=== PATIENT | male | born 2000 | race Caucasian/White ===

== ENCOUNTER 2023-12-15 10:00 | Outpatient (CLI) | payer OTHER ==
--- NOTE | 2023-12-15 11:06 | Sleep Patient Instructions ---
Sleep Center Visit Summary - Patient Visit Information Reason for Visit: Initial consult for evaluation of sleep disordered breathing and other sleep issues. - Patient Instructions Instructions Attached: Sleep Study, Sleep Study Home Monitor Additional Instructions: You will be completing a sleep study, either an in-lab polysomnography (PSG) or home sleep study (HST). You will follow-up in the sleep care office after the sleep study is completed to hear the results and talk about therapy, if needed. You will be called by our office staff to schedule this appointment, but you may contact us with any questions. - Clinic Information Contact: [facility] [address] [place] [id number] [email or web address] T: [phone]
[2023-12-15 11:08] VITALS: BP 123/76; O2SAT 100
--- NOTE | 2023-12-15 11:08 | SLEEP CARE CONSULTATION ---
Information from patient questionnaire entered by Manuela Baca. I have reviewed and concur with the information entered by Manuela Baca. This document represents the service I personally performed and the decisions made by me, Gabby Jerome ARNP. History of Present Illness Service Date and Time: 12/15/2023 1000 Reason for Visit: New patient Chief Complaint: reports: Unrefreshed sleep, Excessive daytime sleepiness, Fatigue Date of Onset: A YR Usual bedtime: 2200 Time it takes to fall asleep: 10-15 MINS Snores at night: Yes Observed to quit breathing while asleep: No Sleeps alone due to snoring: No Number of times waking at night: USUALLY NEVER Reasons for waking at night: reports: Gasping for air (handful of times, last time 4 months ago). denies: Choking Toss, Turn, or Twitch while sleeping: Yes Recalls having dreams: Yes Usually gets out of bed at: 0500; weekends 09-1000 Feels refreshed in the morning: No Morning headache: Yes (almost daily) Sleepy or fatigued during the day: Yes Ever fallen asleep while driving: No Takes day naps: No Dreams during day naps: Yes Prior sleep studies: No Additional HPI information: I had the pleasure of seeing JAMEY PEREZ today regarding the possibility of him having a sleep disorder. His current complaints are fatigue, sleepiness and unrefreshed sleep. He says he has fatigue during the day and waking up not feeling rested at all. He is waking up with headaches almost every day that last about 1 hour or more. He also has a dry mouth in the mornings. The patient tells me that he normally goes to bed around 10 pm, and it takes him approximately 10-15 minutes to fall asleep. He has been told that he snores loudly and irregularly at night. He has not been observed to stop breathing in his sleep. His bed partner can still sleep in the same bed. He can recall waking up on the average of 0 times during the night. He has not awakened for his own snoring, choking, and having to gasp for air. There is a lot of tossing and turning in his sleep. Generally he can recall having dreams. He usually wakes up at 0500 and does not feel refreshed. He usually does have a morning headache. During the day he complains of feeling sleepy and fatigued. He has never fallen asleep while driving nor has any accident due to sleepiness. He usually does not take naps during the day. There is no somniloquy (sleep talking) or somnambulism (sleep walking). He reports having impaired concentration during the day. - Parasomnia Symptoms Ever been unable to move upon waking from sleep: Yes (only when takes naps, none in last year) Walks in sleep: No Talks in sleep: No Ever acted out dreams in sleep: No Ever felt weak in the knees when startled or emotional: No Bothered by creepy, crawly, restless sensations in legs: No Problems with memory or concentration: Yes ( mostly concentration) Subjective Initial [place] Sleepiness Scale score: 10 (12/03/23) Past Medical History Past Medical History: reports: Other (no significant medical conditions) Social History The patient's occupation is a ACTIVE [employer]. Patient is Single and lives in . Have you smoked in the past 12 months: No Alcohol use: No Caffeine use: Yes Caffeine amount and frequency: 1-2 QAM Family History Family history of sleep disordered breathing: No Allergies and Home Medications Known drug allergies: No Drug allergies reviewed: Yes Home medication list reviewed: Yes (none) Allergy and home medication list: Allergies No Known Drug Allergies Allergy (Verified 12/15/23 10:39) Home Medications No Known Home Medications 12/15/23 [History] Review of Systems Cardiovascular: denies: high blood pressure Gastrointestinal: denies: heartburn Neurological: denies: headaches Psychiatric: denies: anxiety, depression Ear/Nose/Throat: reports: dry mouth/throat, wisdom teeth removed. denies: tonsillectomy Endocrine: reports: sluggishness, excessive thirst Physical Exam Vital signs obtained and entered by: MANUELA Kenny MA Blood Pressure: 123/76 (LEFT ARM) Cuff size: regular Heart Rate: 76 O2 Saturation: 100 Height: 6 ft 2 in (PER PT) Weight: 175 lb 8 oz (PER PT) Body Mass Index: 22.5 BMI Classification: Normal Neck circumference: 14.75 Nostrils: patent to airflow Mouth and throat: narrow oropharynx Soft palate: long Hard palate: normal Uvula: normal Uvula visualization: 25% Mallampati Class III Tongue: normal in size Tonsils: small Neck: normal w/o lymphadenopathy or thyromegaly Heart: regular rate and rhythm Lungs: clear bilaterally Impression and Plan 1. Suspected Obstructive Sleep Apnea-Hypopnea Syndrome, as suggested by a history of irregular snoring, morning headache, unrefreshed sleep, cognitive impairment, and excessive daytime sleepiness. Narrow oropharynx and obesity are common predisposing factors for obstructive sleep apnea-hypopnea syndrome. I recommend proceeding to polysomnography to confirm the diagnosis and to assess severity. If the patient has significant sleep disordered breathing, a manual CPAP titration study will also be performed to find the optimal treatment pressure. I informed the patient of what the sleep studies involve and after some discussion, obtained agreement to proceed. The pathophysiology of obstructive sleep apnea-hypopnea syndrome was discussed with the patient and he alth risks of cardiovascular and cerebrovascular disease if not treated. Risks of drowsy driving discussed in detail and patient advised to avoid long distance driving and to green chain puller at the first sign of drowsiness. Patient agreed to plan. * Schedule polysomnography * Avoid long distance driving or driving when feeling sleepy. * Avoid alcohol, sedative and muscle relaxant around bedtime. * Review instructions provided by trained office staff on how to prepare for the sleep study. * Return for follow-up after sleep study completed. Plan: PSG/HST and follow up Time Spent with Patient (minutes): 27
== END 2023-12-15 10:01 | disposition home or self-care (01) ==
LOC: SC 10:00
PROVIDERS: ATTEND Nurse Practitioner Family
DX: R06.83 Snoring (principal); R51.9 Headache, unspecified; G47.8 Other sleep disorders; G47.10 Hypersomnia, unspecified; R41.89 Other symptoms and signs involving cognitive functions and awareness
CPT/HCPCS: 99202; 99212

== ENCOUNTER 2023-12-25 08:44 | Outpatient (CLI) | payer OTHER | END 2023-12-25 08:45 | disposition home or self-care (01) | LOC: SC 08:44 | PROVIDERS: ATTEND Nurse Practitioner Family | DX: R06.83 Snoring (principal); G47.10 Hypersomnia, unspecified; R53.83 Other fatigue; R51.9 Headache, unspecified; G47.8 Other sleep disorders | CPT/HCPCS: 95806 ==

== ENCOUNTER 2024-01-13 09:44 | Outpatient (CLI) | payer OTHER ==
--- NOTE | 2024-01-13 10:25 | Sleep Patient Instructions ---
Sleep Center Visit Summary - Patient Visit Information Reason for Visit: Sleep study follow-up - Patient Instructions Instructions Attached: Snoring Tips Prevent Additional Instructions: Your sleep study today was negative for significant sleep disordered breathing. You were found to have episodes of snoring. There are different ways to control snoring including weight loss, oral devices made by a dentist or surgical options through ENT specialist. You should not use oral devices that do not fit properly because they can affect your bite. You should also check insurance coverage of oral devices for snoring because they may not be cover well. You may obtain a referral to an ENT specialist through your primary provider. Follow-up as needed. - Clinic Information Contact: [facility] [address] [place] [address] [email or web address] T: [phone]
[2024-01-13 10:29] VITALS: BP 131/81; O2SAT 100
--- NOTE | 2024-01-13 10:29 | SLEEP CARE CONSULTATION ---
Information from patient questionnaire entered by Jerrica Baca. I have reviewed and concur with the information entered by Jerrica Baca. This document represents the service I personally performed and the decisions made by , Gabby Jerome ARNP. History of Present Illness Service Date and Time: 01/13/202444 Initial [place] Sleepiness Scale score: 10 (12/03/23) Current [place] Sleepiness Scale score: 7 (01/13/24) Additional HPI information: JAMEY PEREZ returns for follow up and results of the recently performed home sleep study done on 12/26/23. The patient was informed of the following findings: No significant sleep disor dered breathing with an average AHI of 1.8 and franco oxygen saturation of 93%. I explained the pathophysiology behind obstructive sleep apnea. Patient does not have sleep apnea and was advised how weight gain could increase the risk of developing sleep apnea in the future. Patient has light snoring. Snoring can also be treated with an oral appliance from a dentist. Advised to check insurance coverage. In addition, an ENT evaluation can be do to see if other treatment is indicated. Patient does not drink alcohol. Patient was cautioned about risks of drowsy driving until sleepiness symptoms resolve. Patient denies drowsy driving. Sleep Study - Results Type of Sleep Study: Home sleep study (COMPLETED 12/26/23) Prior sleep studies: No Polysomnography/Home Sleep Study results: Physician Impression: The quality of the study is good. The length of the study is adequate (> 240 minutes). Please also see the tabulated and graphic data. 1. No significant sleep disordered breathing, with an AHI of 1.8/hr and franco SaO2 of 93%. During the study, the patient had 11 apneas (11 obstructive, 0 central, 0 mixed) and 1 hypopnea. The longest episode lasted 35.0 seconds. The patient slept adequately in supine position (supine AHI was 1.5 and non-supine, 2.25). Allergies and Home Medications Known drug allergies: No Drug allergies reviewed: Yes Home medication list reviewed: Yes (no changes) Allergy and home medication list: Allergies No Known Drug Allergies Allergy (Verified 01/13/24 10:02) Review of Systems Review of systems same as previous: Yes (no changes) Physical Exam Vital signs obtained and entered by: JERRICA Kenny MA Blood Pressure: 131/81 (RIGHT ARM) Cuff size: regular Heart Rate: 67 O2 Saturation: 100 Height: 6 ft 2 in Weight: 180 lb 9.6 oz Body Mass Index: 23.1 BMI Classification: Normal Impression and Plan 1. Snoring but no significant sleep disordered breathing. Patient advised that often weight loss will reduce snoring as well as apnea risk. An oral appliance can also be used for snoring. This would require a dental consultation. Patient cautioned not to use other online appliances as can cause bite issues. Patient is advised to check if insurance will cover. An ENT consult can also be helpful to determine if any other treatment is an option. * Return as needed for follow up. Counseling Topics: Weight control Follow up with Sleep Care in: as needed Visit Type: In Office Time Spent with Patient (minutes): 11 Provider Statement: I spent 100% of the Face to Face Visit with the patient with greater than 50% spent counseling the patient and coordination of care.
== END 2024-01-13 09:45 | disposition home or self-care (01) ==
LOC: SC 09:44
PROVIDERS: ATTEND Nurse Practitioner Family
DX: R06.83 Snoring (principal)
CPT/HCPCS: 99212